=== PATIENT | female | born 1955 | race Caucasian/White ===

== ENCOUNTER 2021-02-09 13:18 | Emergency (ER) | payer OTHER ==
[~2021-02-09] VITALS: Ht 170.2 cm; Wt 66.9 kg
[2021-02-09] MEDS ORDERED: TETRACAINE 0.5% OPHTH SOLN 4ML OU ONE (14:25)
[2021-02-09 15:19] VITALS: BP 155/85
== END 2021-02-09 15:26 | disposition home or self-care (01) ==
LOC: M ED 13:18 → MERGE 13:18 → M ED 15:26
DX: H40.10X0 Unspecified open-angle glaucoma, stage unspecified (principal)